=== PATIENT | male | born 1950 | race Native Hawaiian/Other Pacific Islander ===

== ENCOUNTER 2021-09-14 19:16 | Emergency (ER) | payer OTHER ==
[~2021-09-14] VITALS: Ht 162.6 cm; Wt 84.4 kg
[2021-09-14 19:57] LABS: PLATELET COUNT 235 K/uL (142-355)
[2021-09-14 19:59] LABS: POTASSIUM 3.8 mmol/L (3.6-5.2)
[2021-09-14 20:45] VITALS: BP 150/83; TEMP 99.1
[2021-09-15] MEDS ORDERED: LIPITOR80 MG PO (11:18)
[2021-09-15] MEDS ORDERED: DIPHENHYDRAM50 MG/ML IM (11:19)
[2021-09-15] MEDS ORDERED: BUSPIRONE5 MG PO (11:21)
[2021-09-15] MEDS ORDERED: CLOP75TA2 PO (11:22)
[2021-09-15] MEDS ORDERED: DOK100 MG PO (11:23)
[2021-09-15] MEDS ORDERED: VALPROIC A250 MG/5 M PO (11:26)
[2021-09-15] MEDS ORDERED: LEXAPRO20 MG PO (11:27)
[2021-09-15] MEDS ORDERED: FISH OIL1000 M1 PO (11:28)
[2021-09-15] MEDS ORDERED: GABA300C2 PO (11:29)
[2021-09-15] MEDS ORDERED: HALO5INJ3 IM (11:31)
[2021-09-15] MEDS ORDERED: LEVEMIR FL100 UNIT/M SC (11:32)
[2021-09-15] MEDS ORDERED: LEVO0.117 PO (11:36)
[2021-09-15] MEDS ORDERED: LISI10TA11 PO (11:38)
[2021-09-15] MEDS ORDERED: METF100038 PO (11:39)
[2021-09-15] MEDS ORDERED: METO-837 PO (11:40)
[2021-09-15] MEDS ORDERED: ROPINIROLE0.25 MG PO (11:41)
[2021-09-15] MEDS ORDERED: MIRALAX17 GM PO (11:41)
[2021-09-15] MEDS ORDERED: SYSTANE ULTRA OPTH (11:43)
[2021-09-15] MEDS ORDERED: TAMSULOSIN0.4 MG PO (11:50)
[2021-09-15] MEDS ORDERED: TRAZODONE HYDRO50 MG PO (11:51)
[2021-09-15] MEDS ORDERED: TYLENOL325 MG PO (11:52)
== END 2021-09-14 19:45 | disposition still patient (30) ==
LOC: ED 19:16
PROVIDERS: Hospitalist
DX: F03.91 Unspecified dementia, unspecified severity, with behavioral disturbance (principal); Z11.52 Encounter for screening for COVID-19; Z04.6 Encounter for general psychiatric examination, requested by authority
CPT/HCPCS: 36415; 80053; 81000; 84484; 85027; 87635; 93005; 99283; U0003